=== PATIENT | male | born 1955 | race Caucasian/White ===

== ENCOUNTER 2025-01-08 20:33 | Inpatient (IN) | payer MEDICARE, OTHER, SELFPAY ==
[2025-01-08] VITALS (7 sets, daily range): BP systolic 129–174; BP diastolic 74–86; BMI 24.4; BMI 23.6
[2025-01-08 17:14] LABS: % Basophils 0.4 % (0-2); % Eosinophils 1.5 % (0-6); % Immature Granulocytes 0.2 % (0-0.5); % Lymphocytes 13.9 % (20.5-51.1); % Monocytes 7.6 % (1.7-9.3); % Neutrophils 76.4 % (42.2-75.2); Absolute Eosinophils 0.1 10^3/uL (0-0.7); Absolute Lymphocytes 1.3 10^3/uL (1.2-3.4); Absolute Monocytes 0.7 10^3/uL (0.1-0.6); Absolute Neutrophils 7.3 10^3/uL (1.4-6.5); Hematocrit 47.3 % (39.0-52.0); Hemoglobin 15.8 g/dL (13.0-18.0); Mean Corp Hgb Conc. 33.4 g/dL (33.0-37.0); Mean Corpuscular Hgb 30.2 pg (27.0-31.0); Mean Corpuscular Volume 90.3 fL (80.0-94.0); Mean Platelet Volume 10.1 fL (7.4-10.4); Nucleated Red Blood Cells % 0 % (-); Platelet Count 289 10^3/uL (130-400); Red Blood Cell Count 5.24 10^6/uL (4.70-6.10); Red Cell Dist. Width 13.2 % (11.5-14.5); White Blood Cell Count 9.5 10^3/uL (4.8-10.8)
[2025-01-08 17:27] LABS: ALT (SGPT) 16 U/L (0-50); AST (SGOT) 20 U/L (17-59); Albumin 4.8 g/dl (3.5-5.0); Alkaline Phosphatase 57 U/L (38-126); Blood Urea Nitrogen 14 mg/dl (9-20); Calcium 9.5 mg/dl (8.4-10.2); Carbon Dioxide 25 mmol/L (22-30); Chloride 106 mmol/L (98-107); Glucose 100 mg/dl (70-99); Potassium 4.6 mmol/L (3.5-5.1); Sodium 139 mmol/L (135-145); Total Bilirubin 1.3 mg/dl (0.2-1.3); Total Protein 7.1 g/dl (6.3-8.2); eGFR > 60.00
[2025-01-08 17:40] LABS: Troponin I 0.081 ng/ml
[2025-01-08] MEDS: NITROSTAT (SUBLINGUAL) 0.4 MG SL (18:51)
[2025-01-08] MEDS: LOW STRENGTH ASPIRIN 324 MG PO (18:52)
--- NOTE | 2025-01-08 18:56 | ED.GENMED ---
History of Present Illness
General
Chief Complaint: Cardiac Symptoms
Time Seen by Provider: 01/08/25 18:30
History of Present Illness
History of Present Illness:
Patient is a 69-year-old man with history of hypertension presenting to the emergency department chest pain. Patient states that last night he developed chest pressure that he thought was indigestion. It worsened throughout the day. It did go
down to his right hand though that resolved. He has never had this happen to him before. He does have strong family history of cardiac disease and his father in his 40s from heart attack. He did see cardiology back in 2022 and
reportedly had a normal CT scan. Has never had a stress test. No smoking. Social alcohol use. No associated shortness of breath leg swelling or hemoptysis. Is never happened to him before. He does state that he has a mild 1-2 out of 10 chest
pain currently.
Phy Exam
Physical Exam
Physical Exam:
GENERAL: in no acute distress
HEENT: normocephalic, extraocular movements intact, moist oral mucosa
NECK: normal inspection
RESPIRATORY: no respiratory distress, clear to auscultation bilaterally
CARDIOVASCULAR: regular rate and rhythm, 2+ radial pulses bilaterally
ABDOMEN/: soft, non-distended, non-tender to palpation, no rebound or guarding
EXTREMITIES: non-tender, no edema/swelling
NEUROLOGIC: awake and alert, moves all extremities
SKIN: warm
Course
Orders/Labs/Results
Orders:
Orders
01/08/25 16:28
EKG [Electrocardiogram (*1)] Urgent
Reason for Study: Chest Pain
EKG- Treatment ONCE
01/08/25 16:33
CR Chest - 2 Views Urgent
Comment:
Reason For Exam: cardiac symptoms
01/08/25 16:45
Complete Blood Count/With Diff Urgent
Comprehensive Metabolic Panel Urgent
Troponin I Urgent
01/08/25 18:46
EKG- Treatment ONCE
Aspirin Chewable [Low Strength Aspirin] 324 mg PO NOW STA
Nitroglycerin Sublingual [Nitrostat (Sublingual)] 0.4 mg SL NOW STA
01/08/25 18:50
Troponin I Urgent
01/08/25 19:13
Heparin 4,000 units IV NOW STA
01/08/25 19:14
D-Dimer Urgent
PTT Urgent
Comment: Obtain baseline before beginning heparin infusion if not already collected
Nursing to Place Non Medication Order As Directed
Physician Order: PTT 6 hours after initial start of Heparin infusion
Above order entered?: Yes
01/08/25 19:15
Heparin 36142 Units/250 ml 25,000 units in 250 ml IV PER PROTOCOL
Weight to be used for heparin protocol in kilograms (kg):: 77.2
Protocol:: Cardiac Tx/Acute Coronary
PTT Goal Range to be used:: PTT 73 to 111 seconds
Order type:: Initial
INITIAL Infusion Dose (UNITS/KG/hr) & then follow protocol:: 15 units/kg/hr
Infusion Dose in UNITS/hr & then follow protocol (UNITS/hr):: 1,150
INFUSION RATE in mL/hr & then follow protocol (mL/hr):: 11.5
PTT less than or equal to 64 seconds:: Increase rate by 200 units/hr (+ 2 mL/hr)
PTT 64.1 to 72.9 seconds:: Increase rate by 100 units/hr (+ 1 mL/hr)
PTT 73 to 111 seconds:: Target Range. No change in rate.
PTT 111.1 to 130.9 seconds:: Decrease rate by 100 units/hr (- 1 mL/hr)
PTT 131 to 199.9 seconds:: HOLD for 1 hr. Then decrease rate by 200 units/hr (- 2 mL/hr)
PTT greater than or equal to 200 seconds:: HOLD for 2 hrs & Notify Provider. Then decrease by 200 units/hr (-
2 mL/hr)
Lab follow-up:: Each change, PTT q6h until 2 consecutive are therapeutic. Then PTT
daily.
01/08/25 19:22
Electrocardiogram (*1) Urgent
Reason for Study: Other
Other Reason for Exam: chest pain resolved
EKG- Treatment ONCE
01/08/25 19:45
Electrocardiogram (*1) Urgent
Reason for Study: Chest Pain
Abnormal Lab Results
01/08/25 01/08/25
16:45 18:50
Absolute Neuts (auto) 7.3 H 10^3/uL
(1.4-6.5)
Absolute Monos (auto) 0.7 H 10^3/uL
(0.1-0.6)
Neutrophils % 76.4 H %
(42.2-75.2)
Lymphocytes % 13.9 L %
(20.5-51.1)
Glucose 100 H mg/dl
(70-99)
Troponin I 0.081 H* ng/ml 0.112 H* D ng/ml
01/08/25 16:45
01/08/25 16:45
Vital Signs
Initial and Last Documented VS:
Initial Vital Signs
Temp Pulse Resp BP Pulse Ox
98.0 F 77 18 174/86 98
01/08/25 16:29 01/08/25 16:29 01/08/25 16:29 01/08/25 16:29 01/08/25 16:29
Last Documented Vital Signs
Temp Pulse Resp BP Pulse Ox
98.0 F 71 12 129/79 97
01/08/25 16:29 01/08/25 19:15 01/08/25 19:15 01/08/25 19:08 01/08/25 19:15
MDM/Problems Addressed
Differential Diagnosis Includes:
Patient is a 69-year-old male with history of hypertension presenting to the emergency department with chest pain. On arrival patient was hypertensive though that improved without any intervention. Exam is otherwise reassuring. Concern for ACS.
Initial EKG per my interpretation with diffuse ST depressions and possible 1 mm elevation in aVR. Initial troponin is elevated. Will give aspirin and nitroglycerin. Will initiate heparin drip.
I did discuss with cardiology given patient's ongoing chest pain and EKG changes. They recommended adding on dimer and ekg when chest pain free.
On reevaluation patient states that he is chest pain-free after aspirin and nitroglycerin. He only received 1 sublingual. Repeat EKG per my interpretation with resolution of the changes. Discussed with hospitalist who accepted patient to their
service. Dimer pending.
*Critical Care Note
Total Time (30-74mins, 75-104mins- exclusive of procedures): 31
comment:
Critical care statement: A total of 31 minutes of critical care time was provided for this patient. This includes management of unstable vital signs, evaluation of the patient at bedside, reviewing the patient's pertinent medical records, ordering
and reviewing studies, arranging urgent treatment with development of a management plan, evaluating patient's response to treatment, frequent reassessment, and discussion with consultants. This time was separate from time utilized to perform the
aforementioned documented procedures.
ED Attending Note
-
Portions of this chart may have been created with voice recognition software.� Occasional wrong word or��sound alike� substitutions may have occurred due to the inherent limitations of voice recognition software.
Discharge Plan
Departure
Patient Disposition: Admit
Date of Disposition: 01/08/25
Time of Disposition: 19:42
Presentation/result/management discussed w/ accepting MD/DO: Hospitalist
Discharge Problem:
Non-ST elevation AL (NSTEMI)
Prescriptions:
No Action
losartan 50 mg Tablet
50 mg PO DAILY
latanoprost 0.005 % Drops
1 drp RIGHT EYE HS
dextroamphetamine-amphetamine [Adderall] 10 mg Tablet
10 mg PO DAILY
amlodipine [Norvasc] 10 mg Tablet
10 mg PO DAILY
acetaminophen [Tylenol] 325 mg Tablet
325 mg PO DAILYPRN PRN (Reason: mild pain)
timolol maleate 0.5 % Gel Forming Solution
1 drp RIGHT EYE DAILY
Interventions
Interventions:
*Risk Screen - Suicide Last Done: 01/08/25 19:07
*General Assessment Last Done: 01/08/25 16:29
*Neglect/Abuse Screening Last Done: 01/08/25 19:07
*ED- Fall Risk Assessment Last Done: 01/08/25 19:07
*ED COVID-19 Vaccine History Last Done: 01/08/25 19:37
ED- Pulmonary Assessment Last Done: 01/08/25 19:07
ED- Cardiac Assessment Last Done: 01/08/25 19:07
Discharge Date and Time
Print Language: MALTESE
[2025-01-08 19:23] LABS: Troponin I 0.112 ng/ml
[2025-01-08] MEDS: HEPARIN 25000 UNITS/250 ML IV (19:34)
[2025-01-08] MEDS: HEPARIN 4000 UNITS IV (19:35)
[2025-01-08 20:04] LABS: APTT 35.1 Sec (23.4-35.0)
[2025-01-08 20:12] LABS: D-Dimer < 0.27 ug/mlFEU (0.00-0.50)
--- NOTE | 2025-01-08 20:15 | HPS.HSE ---
Addendum entered and electronically signed by Refugio Heredia DO 01/08/25 21:49:
Patient seen and examined independently. Agree with findings and plan as set forth by Sheila Oakley PA-C.
Patient is a 69y M with PMH significant for hypertension who presents to ED complaining of chest discomfort. Patient states that he woke this AM around 3 with chest pressure. He felt that this was due to indigestion. His discomfort was in the
center of the chest with radiation into the R shoulder and arm. It was worse when lying flat. No associated dyspnea, nausea, diaphoresis, etc. His symptoms persisted and worsened throughout the day and he presented to the ED for further
evaluation.
He denies any prior history of similar symptoms.
He denies any prior history of CV disease, [place], stroke, etc.
He does have strong family history. His father had CAD with his first [place] at age 39.
Ass:
NSTEMI / ACS
Benign Hypertension
Glaucoma
Plan:
Admit to IVU for further evaluation and treatment.
Patient is pain free after single NTG in the ED.
IV heparin initiated.
Continue ASA. Begin statin. low-dose beta-vernon, etc.
Cardiology consultation - probable ischemic evaluation in the AM.
Monitor for any recurrent pain or other new symptoms overnight.
Follow troponin to peak.
Follow serial EKG.
Original Note:
Family Physician
-
Family Physician:
Chief Complaint
-
Chest Discomfort
History of Present Illness
Patient is a 69 y/o male past medical history of hypertension who presents with chest discomfort. Patient awoke around 3am this morning with chest pressure which he attributed to indigestion. He notes it seemed worse when lying flat but improved
when sitting up. He reports symptoms persisted and worsened throughout the day prompting him to come to the emergency department for evaluation. He denies any associated shortness of breath or diaphoresis. He denies any similar episodes in the past.
Medical History
Past Medical History
Past Medical History: Reports Other
Additional Past Medical History:
Essential Hypertension
Glaucoma
Past Surgical History: Reports None
Social History
Tobacco: Non-smoker
Alcohol: Occasional
Family History
Family History: Other (Father: Early CAD passing from heart attack in his 40s)
Allergies / Home Medications
Allergies reflects when Allergies were last updated in [facility].
Home Medications with original date entered in [facility]
Allergy/Medication List:
Allergies
Allergy/AdvReac Type Severity Reaction Status Date / Time
No Known Allergies Allergy Unverified 01/08/25 16:29
Home Medications
acetaminophen 325 mg tablet (Tylenol) 325 mg PO DAILYPRN PRN mild pain 01/08/25
amlodipine 10 mg tablet (Norvasc) 10 mg PO DAILY 01/08/25
dextroamphetamine-amphetamine 10 mg tablet (Adderall) 10 mg PO DAILY 01/08/25
latanoprost 0.005 % eye drops 1 drp RIGHT EYE HS 01/08/25
losartan 50 mg tablet 50 mg PO DAILY 01/08/25
timolol maleate 0.5 % eye gel forming solution 1 drp RIGHT EYE DAILY 01/08/25
Review of Systems
-
A 12 point ROS was completed and negative except as noted: Yes
Constitutional: Denies Fever or Chills
Respiratory: Denies Cough or Trouble Breathing
Cardiac: Reports See HPI
Abdomen/GI: Denies Abdominal Pain, Nausea, Vomiting or Diarrhea
Physical Exam
Vital Signs
Vital Signs
Temp Pulse Resp BP Pulse Ox
98.0 F 71 12 129/79 97
01/08/25 16:29 01/08/25 19:15 01/08/25 19:15 01/08/25 19:08 01/08/25 19:15
Physical Exam
General: Comfortable and Conversant
HEENT: Anicteric and Moist mucous membranes
Respiratory: Clear and Non Labored Respirations
Cardiac: S1/S2 and Regular Rhythm
GI: Soft and Non Tender
Rectal: Deferred by Provider
Musculoskeletal: No Clubbing, No Cyanosis and No Edema
Skin: Warm and Dry
Neuro: Awake, Alert, Oriented and Nonfocal/grossly intact
Psych: Calm
Laboratory Results
-
01/08/25 16:45
01/08/25 16:45
Laboratory Results
APTT 35.1 Sec (23.4-35.0) H 01/08/25 19:32
Total Bilirubin 1.3 mg/dl (0.2-1.3) 01/08/25 16:45
AST 20 U/L (17-59) 01/08/25 16:45
ALT 16 U/L (0-50) 01/08/25 16:45
Alkaline Phosphatase 57 U/L (38-126) 01/08/25 16:45
Troponin I 0.112 ng/ml H* D 01/08/25 18:50
Data Reviewed
-
Medical Tests (Nuc Med, Echo, EKG etc): Image Personally Visualized and interpreted (ECG)
Lab Data: Labs Reviewed by me
Old Records: Reviewed
Impression/Plan
-
NSTEMI
-Admit to IVU
-Consult Cardiology
-Continue to trend troponin
-Continue aspirin
-Continue heparin drip
-Start Lipitor
-Check Echocardiogram
-Tentative plan for cardiac cath tomorrow
Essential Hypertension
-Continue losartan
-Hold amlodipine and transition to Toprol XL in setting of NSTEMI
Glaucoma
-Continue latanoprost and timolol
DVT proph: Heparin drip
Code Status: Full Code
--- NOTE | 2025-01-08 22:18 | PTCARENOTE ---
received the patient from the ED. AAOx3. denies any cp/sob at this time. educated patient to inform RN with any changes. heparin gtt infusing per protocol. SR in tele 60s. 142/84. NPO. answered all questions. reviewed plan of care with patient. call
arceo within reach.
[2025-01-08] MEDS: XALATAN OPHTHALMIC SOLUTION 1 DROP RIGHT EYE (22:57)
[2025-01-08 23:42] LABS: Troponin I 0.353 ng/ml
[2025-01-09] VITALS (18 sets, daily range): BP systolic 107–167; BP diastolic 66–92; BMI 23.6
[2025-01-09 02:11] LABS: APTT 166.5 Sec (23.4-35.0)
[2025-01-09 05:26] LABS: Hematocrit 43.3 % (39.0-52.0); Hemoglobin 14.6 g/dL (13.0-18.0); Mean Corp Hgb Conc. 33.7 g/dL (33.0-37.0); Mean Corpuscular Hgb 30.3 pg (27.0-31.0); Mean Corpuscular Volume 89.8 fL (80.0-94.0); Mean Platelet Volume 10.1 fL (7.4-10.4); Platelet Count 233 10^3/uL (130-400); Red Blood Cell Count 4.82 10^6/uL (4.70-6.10); Red Cell Dist. Width 13.3 % (11.5-14.5); White Blood Cell Count 7.1 10^3/uL (4.8-10.8)
[2025-01-09 05:59] LABS: Blood Urea Nitrogen 13 mg/dl (9-20); Calcium 9.1 mg/dl (8.4-10.2); Carbon Dioxide 23 mmol/L (22-30); Chloride 110 mmol/L (98-107); Estimated Creatinine Clearance 80 ml/min; Glucose 96 mg/dl (70-99); HDL Cholesterol 43 mg/dl; LDL Cholesterol, Calculated 99 mg/dl; Magnesium 2.1 mg/dl (1.6-2.3); Sodium 140 mmol/L (135-145); Total Cholesterol 160 mg/dl (50-199); Triglyceride 93 mg/dl (10-149); Very Low Density Lipoprotein 18 mg/dl (0-30); eGFR > 60.00
[2025-01-09 06:13] LABS: Troponin I 0.426 ng/ml
[2025-01-09] MEDS: COZAAR 50 MG PO (08:21)
[2025-01-09] MEDS: LOW STRENGTH ASPIRIN 81 MG PO (08:21)
[2025-01-09] MEDS: TOPROL XL 25 MG PO (08:22)
[2025-01-09] MEDS: TIMOPTIC 0.5% OPHTHALMIC SOLUTION 1 DROP RIGHT EYE (08:22)
--- NOTE | 2025-01-09 08:26 | CON.CAR ---
Addendum entered and electronically signed by Angel Lemus MD 01/09/25 09:22:
Patient seen and examined in collaboration with [employer]; agree with below.
- 69-year-old male with hypertension and strong family history of coronary artery disease (father of an NC at the age of 40 and patient's sister underwent coronary stenting) presenting with chest pain.
- Some typical (midsternal 'chest discomfort/indigestion' with radiation to shoulders and arms) and atypical features (relieved with sitting up, worse with laying down--typical symptom for pericarditis).
- Given persistence of symptoms, age, and risk factors/family history of CAD , cardiac catheterization is recommended.
- Cardiac catheterization will be arranged for today.
- Will obtain an echocardiogram this a.m. prior to cath.
- Continue aspirin, heparin, atorvastatin, and Toprol-XL.
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
- Keep NPO for procedure.
Original Note:
Consultation
Consultation Request
Date/Time Consultation Requested: 01/08/2025 22:00
Date/Time Consultation Performed: 01/09/2025 07:50
Requesting Provider: Sheila Oakley PA-C
Performing Provider: MISSY Oshea for Dr. Lemus
Reason for Consultation: NSTEMI
Medical History
-
Chief Complaint: Chest burning
History of Present Illness:
Anastacio Lr is a 69-year-old male (seen by Dr. Gonzalez in 2022), with hypertension and ADHD who presented to the emergency department the chief complaint of chest burning. His chest burning woke him up from sleep. It radiated into his right
shoulder. No diaphoresis, nausea, nor dizziness. It started over the weekend. He thought it was related to indigestion as he tried a new recipe. It got worse with laying flat but improved when sitting up. He normally plays basketball on the
weekends for exercise and feels like he has been a little bit slower than usual. He feels like it takes a little bit longer for him to catch his breath. He was found to have an abnormal troponin. It continues to trend up.
His father had his first NC at age 49 and at age 64. He is the oldest of his siblings. None of them have been diagnosed with coronary artery disease.
Past Medical History
Past Medical History: HTN and Psychiatric (ADHD)
Past Surgical History: None
Social History
Tobacco: Non-Smoker
Alcohol: Occasional (3 drinks per week)
Drug: None
Personal:
Living: With Family
Employment: Retired
Family History
Family History: Early CAD
Allergies / Home Medications
Allergy/AdvReac Type Severity Reaction Status Date / Time
No Known Allergies Allergy Unverified 01/08/25 16:29
�Medication �Instructions �Recorded �Confirmed �Type
acetaminophen 325 mg tablet 325 mg PO DAILYPRN PRN mild pain 01/08/25 01/08/25 History
(Tylenol)
amlodipine 10 mg tablet (Norvasc) 10 mg PO DAILY Blood Pressure 01/08/25 01/08/25 History
dextroamphetamine-amphetamine 10 10 mg PO DAILY ADHD 01/08/25 01/08/25 History
mg tablet (Adderall)
latanoprost 0.005 % eye drops 1 drp RIGHT EYE HS Eye Condition 01/08/25 01/08/25 History
losartan 50 mg tablet 50 mg PO DAILY Blood Pressure 01/08/25 01/08/25 History
timolol maleate 0.5 % eye gel 1 drp RIGHT EYE DAILY Eye Condition 01/08/25 01/08/25 History
forming solution
Review of Systems
-
History Source: Patient
All other systems: Negative unless noted
Constitutional: No Symptoms
EENT: No Symptoms
Respiratory: No Symptoms
Cardiac: No Symptoms
Abdomen/GI: No Symptoms
: No Symptoms
Musculoskeletal: No Symptoms
Skin: No Symptoms
Neurological: No Symptoms
Endocrine: No Symptoms
Hematologic/Lymphatic: No Symptoms
Physical Exam
Vital Signs
Temp Pulse Resp BP Pulse Ox
97.7 F 66 14 120/71 98
01/09/25 07:09 01/09/25 05:00 01/09/25 07:09 01/09/25 04:59 01/09/25 07:09
Lab Results
01/09/25 05:01
01/09/25 05:01
Troponin I 0.426 ng/ml H* 01/09/25 05:01
Physical Exam
General: Well Developed, Well Nourished, No Apparent Distress and Comfortable
HEENT: Normocephalic, Anicteric and Moist Mucous Membranes
Respiratory: Clear and Non Labored Respirations
Cardiac: S1/S2 and Regular Rhythm; Negative Peripheral Edema
Breast: Deferred by me
GI: Soft, Non Tender, Non Distended and Normal Bowel Sounds
Rectal: Deferred by Provider
Genito-urinary: No Costovertebral Tender
Musculoskeletal: No Clubbing, No Cyanosis and No Edema
Skin: Warm and Dry
Neuro: AO x 3
Hematologic/Lymphatic: No Lymphadenopathy
Psych: Calm
Impression / Plan
-
I/P: 69M with hypertension, ADHD, glaucoma, and premature CAD in his father presents with NSTEMI
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
NSTEMI
- Currently chest pain-free
- Troponin 0.426, not yet peaked, trend
- Worsens with laying flat but EKG does not appear to be consistent with pericarditis
- EKG with nonspecific T wave abnormality
- Start atorvastatin 40 mg, goal LDL <55
- Started on metoprolol succinate 25 mg daily
- HgbA1c pending
- Echocardiogram
- Coronary angiography today
Hypertension
- Diagnosed in his early 60s
- Stable on losartan and amlodipine
Data Reviewed
-
EKG: Report Reviewed by me (As above)
Medical Tests (Nuc Med, Echo etc): Report Reviewed by me (Prior echocardiogram without acute findings)
Labs: Labs Reviewed by me
Old Records: Reviewed
--- NOTE | 2025-01-09 09:33 | CM ---
Reviewed chart. Met with and Mrs. Lr to review discharge plans. He states prior to admission he resides with his spouse in a two story home without any steps to enter. He states he has a full flight of steps to get to bedroom/full bathroom.
He states he has a powder room on the first floor. He states prior to admission he was independent with ambulation and adls. He states he does not have any DME in the home. He states he has a prescription plan and uses [facility]. Medical
work-up in progress. The discharge plan is to return home with his spouse when medically stable.
[2025-01-09 09:37] LABS: Glycohemoglobin (HgbA1c) 5.6 % (4.0-5.6)
[2025-01-09 10:47] LABS: APTT 66.9 Sec (23.4-35.0)
[2025-01-09 10:56] LABS: Troponin I 0.317 ng/ml
--- NOTE | 2025-01-09 15:01 | W.PN.HOSP.TC ---
Today's Communication/Plan
-
Assessment / Plan
Assessment / Plan
General: No Apparent Distress, Comfortable and Conversant
HEENT: NormoCephalic, Moist mucous membranes, Atraumatic
Respiratory: Clear and Non Labored Respirations
Cardiac: S1/S2 and Regular Rhythm; No Rub or Gallop
GI: Soft, Non Tender, Non Distended and Normal Bowel Sounds
Musculoskeletal: No Edema, no deformity
Skin: Warm and dry
: NO Santos
Neuro: Awake, Alert, Nonfocal/grossly intact
Psych: Calm and Intact Judgment/Insight
Mr. Lr is a 69-year-old male with a medical history of hypertension and right eye glaucoma who presented with chest discomfort which awoke him from sleep. In the ED he was found to have rising troponins. EKG showed nonspecific ST and T wave
abnormalities. He has a strong family history of CAD. He was started on anticoagulation with IV heparin and admitted for further evaluation and management.
NSTEMI:
- Strong family history of CAD, father at age of 40 of [place]
- Presented with chest pain, troponins rising
- Continue IV heparin drip
- Awaiting coronary angiography
- Echocardiogram shows normal LVEF, possible basal inferior wall hypokinesis, normal valvular function
- Continue aspirin and statin
Hypertension:
- Continue home losartan 50 mg daily
- Holding home amlodipine 10 mg daily as patient is relatively normotensive on above regimen
- Will monitor
DVT prophylaxis: IV heparin
CODE STATUS: Full code
Total time spent on today's encounter was 40 minutes
Anticipated Discharge: 24 - 48 hours
Subjective/Interval History
-
Date of Service: January 09, 2025
Patient was seen and examined this morning. Comfortable, in no current chest pain. On IV heparin drip, awaiting coronary angiography.
Objective Data
-
Labs:
Laboratory Results
01/09/25 01/09/25 01/09/25
05:01 10:16 17:30
WBC 7.1
Hgb 14.6
Hct 43.3
Plt Count 233
APTT 66.9 H Pending
Sodium 140
Potassium 4.0
Chloride 110 H
Carbon Dioxide 23
BUN 13
Creatinine 0.9
Glucose 96
Calcium 9.1
Vital Signs:
Vital Signs
Temp Pulse Resp BP Pulse Ox
98 F 67 14 123/75 98
01/09/25 10:35 01/09/25 08:00 01/09/25 10:35 01/09/25 07:08 01/09/25 10:35
I&O
01/08/25 01/09/25 01/10/25
06:59 06:59 06:59
Intake Total 0 / 0
Balance 0 / 0
Review of Systems
-
History Source: Patient
All other systems: Reviewed and negative
Physical Exam
-
General: No Apparent Distress
[2025-01-09 15:42] LABS: ACT-LR - POC > 397 Seconds (116-155)
[2025-01-09 15:42] LABS: ACT-LR - POC > 397 Seconds (116-155)
[2025-01-09 16:04] LABS: ACT-LR - POC 353 Seconds (116-155)
[2025-01-09] MEDS: EFFIENT 60 MG PO (16:58)
[2025-01-09] MEDS: MORPHINE SULFATE 2 MG IV ×2 (17:08→21:29)
[2025-01-09] MEDS: LIPITOR 40 MG PO (18:05)
[2025-01-09] MEDS: NITROGLYCERIN PREMIX 250 IV (18:40)
[2025-01-09] MEDS: HEPARIN 25000 UNITS/250 ML IV (18:41)
[2025-01-09 18:46] LABS: Hematocrit 47.7 % (39.0-52.0); Hemoglobin 15.9 g/dL (13.0-18.0); Mean Corp Hgb Conc. 33.3 g/dL (33.0-37.0); Mean Corpuscular Hgb 29.9 pg (27.0-31.0); Mean Corpuscular Volume 89.7 fL (80.0-94.0); Mean Platelet Volume 9.9 fL (7.4-10.4); Platelet Count 263 10^3/uL (130-400); Red Blood Cell Count 5.32 10^6/uL (4.70-6.10); Red Cell Dist. Width 13.4 % (11.5-14.5); White Blood Cell Count 9.8 10^3/uL (4.8-10.8)
[2025-01-09 19:12] LABS: APTT > 200 Sec (23.4-35.0)
[2025-01-09] MEDS: TIMOPTIC 0.5% OPHTHALMIC SOLUTION RIGHT EYE (19:33)
[2025-01-09] MEDS: XALATAN OPHTHALMIC SOLUTION 1 DROP RIGHT EYE (19:33)
--- NOTE | 2025-01-09 20:26 | ITS.CL.PN ---
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
Procedure
Procedure Note:
CARDIAC CATHETERIZATION REPORT
Date of Procedure: 01/09/2025
Referring: Dr. Angel Lemus MD
Indication: NSTEMI
PROCEDURE(S)
1. left heart catheterization
2. coronary angiography
3. PCI with HOPE to LCx
4. IVUS LCx
5. PCI with HOPE to LAD
6. IVUS LAD
ACCESS: 6F right radial artery (closure: radial band)
CATHETERS
1. 6F JR4
2. 6F JL4
3. 6F EBU3.75 guide
MODERATE SEDATION: 60 minutes of moderate sedation was utilized. An independent medical scientific liaison was present to assist with and help manage the patient's level of consciousness and physiologic status.
HEMODYNAMIC DATA
LV 93/2 (EDP 6) mmHg
AO 106/50 (mean 78) mmHg
CORONARY ANGIOGRAPHY
Dominance: Right
LM: Large, normal
LAD: Large vessel giving rise to a small D1, moderate caliber D2, and small D3 before wrapping around the apex. There is a focal 80% stenosis just after D1 and a long segment of moderate 40% stenosis. There is an area of minimal disease in the
proximal LAD. The ostial to very proximal LAD has 30-40% disease.
LCx: Large vessel giving rise to a small OM1, large OM 2, and several small distal OM branches. There is a 95% stenosis in the proximal circumflex and a serial 80% stenosis in the mid body of the large OM 2.
RCA: Large vessel giving rise to a large moderate caliber RPDA and large RPL branch. There is a long 40% stenosis in the proximal vessel and otherwise diffuse mild disease.
IVUS-guided PCI with HOPE to LCx and LAD
Heparin was used to achieve ACT>300. A Runthrough wire was placed in the distal OM2 and initial lesion preparation performed with a 2.5 mm Semi-compliant balloon with full expansion. IVUS was performed demonstrating a 3.5 mm reference vessel
diameter in the OM2 and a 3.75 mm reference diameter in the LCx. The OM2 was stented with a 3.5x23 mm Xience Skypoint HOPE taken to 12 karly and the LCx stented with a 3.5x18 mm Xience Skypoint HOPE taken to 16 karly. Post-dilation was performed in the
OM2 with a 3.5 mm NC balloon taken to 16 karly (sparing the distal edge) and in the LCx with a 3.75 mm NC balloon taken to 16 karly. Final IVUS demonstrated full stent expansion and apposition with no edge dissections. Final angiographic result was
excellent. The Runthrough was then placed in the distal LAD. Initial lesion preparation was performed with the 2.5 mm balloon. IVUS demonstrated a 3.5 mm reference vessel diameter with concentric calcification at the site of worst stenosis and it
was difficult to advanced the IVUS catheter across this section. Thus, to ensure stent expansion could be accomplished without further calcium modification, a 3.5 mm NC was inflated to 16 karly at the lesion site with full expansion noted. Subsequent
angiography demonstrated dissection at this site with no compromise fo distal flow. On review of IVUS, it was noted that there was significant (>50%) plaque burden at the ostial to very proximal LAD. Thus, in order to stent from normal to normal
while adequately covering the dissected area, it was decided to cover to the ostium. This was accomplished with a 3.5x38 mm Xience Skypoint HOPE inflated to 16 karly. Post-dilation was performed with the 3.5 NC take to 16 karly at the distal and proximal
edges and 20 karly centrally with full expansion. Final IVUS demonstrated full stent expansion and apposition with no edge dissections. Final angiographic result demonstrated loss of a small jailed diagonal branch. There were no EKG changes on the
monitor. The patient did report mild chest discomfort. Given that opening this small branch would compromise the integrity and longevity of the proximal LAD stent, it was felt optimal to instead medically manage this small side branch closure to
optimize longwall machine operator helper LAD patency. The wires and guide were removed and a TR band placed. The patient was loaded with 60 mg Prasugrel.
RADIATION: dose 1353 mGy; DAP 90.9 Gy*cm2; fluoroscopy time 20.2 min
CONCLUSIONS
1. Two vessel obstructive CAD with culprit 95% stenosis in the LCx and serial 80% stenosis in the OM2 as well as 80% stenosis in the proximal LAD.
2. Successful IVUS guided PCI of the OM2 with a 3.5x23 mm Xience Skypoint HOPE post-dilated with a 3.5 mm NC balloon.
3. Successful IVUS guided PCI of the LCx with a 3.5x18 mm Xience Skypoint HOPE post-dilated with a 3.75 mm NC balloon.
4. Successful IVUS guided PCI of the ostial to mid LAD with a 3.5x38 mm Xience Skypoint HOPE post-dilated with a 3.5 mm NC balloon, complicated by closure of small jailed diagonal branch, medically managed.
RECOMMENDATIONS
1. DAPT with ASA and Prasugrel for 1 year
2. Aggressive secondary prevention of CAD, high intensity statin for eventual goal LDL<55, check Lp(a)
3. Heparin overnight, can stop in AM
4. Nitro drip to maintain chest pain free, PRN morphine
5. Titrate beta vernon to goal HR 60
6. Cardiac rehab
7. Outpatient follow up with DAIRY TRUCK DRIVER per protocol and then me
Copy to: Dr. Cmailo Espinoza MD (PCP)
Signed: Chuck Gomez MD, PhD
--- NOTE | 2025-01-09 23:26 | PTCARENOTE ---
Received patient at change of shift. SR on the monitor, HR in the 80s. R radial band removed and dressing applied, ecchymotic but soft. Nitro running as per protocol for chest pain. PTT >200, EXECUTIVE SOUS CHEF Adelaide Caraballo notified and protocol followed. Chest pain
11/16, PRN pain medication administered as per order, see MAR. Chest pain now 08/18. Call arceo within reach.
[2025-01-10] VITALS (12 sets, daily range): BP systolic 105–128; BP diastolic 63–80
[2025-01-10 03:49] LABS: Hematocrit 40.9 % (39.0-52.0); Hemoglobin 14.1 g/dL (13.0-18.0); Mean Corp Hgb Conc. 34.5 g/dL (33.0-37.0); Mean Corpuscular Hgb 30.3 pg (27.0-31.0); Mean Corpuscular Volume 87.8 fL (80.0-94.0); Mean Platelet Volume 9.9 fL (7.4-10.4); Platelet Count 263 10^3/uL (130-400); Red Blood Cell Count 4.66 10^6/uL (4.70-6.10); Red Cell Dist. Width 13.3 % (11.5-14.5); White Blood Cell Count 14.7 10^3/uL (4.8-10.8)
[2025-01-10 04:00] LABS: APTT 40.3 Sec (23.4-35.0)
[2025-01-10 04:17] LABS: Blood Urea Nitrogen 16 mg/dl (9-20); Calcium 9.2 mg/dl (8.4-10.2); Carbon Dioxide 20 mmol/L (22-30); Chloride 108 mmol/L (98-107); Estimated Creatinine Clearance 80 ml/min; Glucose 136 mg/dl (70-99); HDL Cholesterol 46 mg/dl; LDL Cholesterol, Calculated 89 mg/dl; Sodium 137 mmol/L (135-145); Total Cholesterol 153 mg/dl (50-199); Triglyceride 90 mg/dl (10-149); Very Low Density Lipoprotein 18 mg/dl (0-30); eGFR > 60.00
--- NOTE | 2025-01-10 07:30 | PTCARENOTE ---
Received pt at change of shift resting in bed, at bedside. Heparin gtt infusing at 950 units/hr and Nitro gtt infusing at 30 mcg/min. pt ambulating in room ad laura. Denies any chest pain or SOB. NSR on the monitor, HR 60-70's. BP 107/68. Cozaar
held per parameters--see MAR for further details. Right radial site C.D.I. No bleeding or hematoma noted at this time. Call arceo within reach.
[2025-01-10] MEDS: TOPROL XL 50 MG PO (08:13)
[2025-01-10] MEDS: LOW STRENGTH ASPIRIN 81 MG PO (08:13)
[2025-01-10] MEDS: TIMOPTIC 0.5% OPHTHALMIC SOLUTION 1 DROP RIGHT EYE (08:14)
[2025-01-10] MEDS: EFFIENT 10 MG PO (08:37)
[2025-01-10] MEDS: COZAAR PO (08:37)
--- NOTE | 2025-01-10 10:08 | W.PN.CD ---
Addendum entered and electronically signed by Angel Lemus MD 01/10/25 13:24:
Patient seen and examined in collaboration with PGY 2 resident; agree with below.
- 69-year-old male with hypertension and family history of coronary artery disease (father and sister) admitted with chest pain; found to have an NSTEMI.
- Cardiac catheterization yesterday revealed multivessel coronary artery disease whereby HOPE (3) were placed to the OM 2, LCx, and ostial to mid LAD (complicated by closure of small jailed diagonal branch, medically managed).
- The patient denies any anginal symptoms currently.
- Echocardiogram yesterday revealed normal LVEF and no significant valvulopathy.
- Examination: Regular rate and rhythm, normal S1-S2; lungs CTA bilaterally; no edema.
- Continue aspirin, prasugrel, atorvastatin, and metoprolol succinate
- Continue losartan for management of hypertension.
- Will continue to monitor on telemetry 1 more day, given small jailed diagonal branch; patient instructed to ambulate and notify staff of any anginal symptoms.
Original Note:
Documented by User: Brandon Shah MD, Resident 01/10/25 10:15
Today's Communication / Plan
-
* Continue DAPT, metoprolol, atorvastatin.
* Monitor today; anticipated discharge tomorrow.
Impression / Plan
-
I/P: 69M with hypertension, ADHD, glaucoma, and premature CAD in his father presents with NSTEMI
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
NSTEMI
- Currently chest pain-free
- Troponin peaked at 0.426 on 01-09-25.
- Continue atorvastatin 40 mg, goal LDL <55
- Continue metoprolol succinate 25 mg daily
- Left heart catheterization on 01-11-25; s/p 3x stents to OM2, LCx and LAD.
- Continue DAPT with aspirin and prasugrel for 1 year; aspirin indefinitely subsequently.
- Cardiac rehab and outpatient cardiology follow-up.
Hypertension
- Diagnosed in his early 60s
- Stable on losartan and amlodipine
Physical Exam
Vital Signs/Labs
Vital Signs
Temp Pulse Resp BP Pulse Ox
97.8 F 77 18 107/68 96
01/10/25 08:37 01/10/25 08:37 01/10/25 08:37 01/10/25 08:37 01/10/25 08:37
01/09/25 01/10/25 01/11/25
06:59 06:59 06:59
Actual Weight 74.7 kg 74.7 kg
01/10/25 03:33
01/10/25 03:33
APTT 40.3 Sec (23.4-35.0) H 01/10/25 03:33
Magnesium 2.1 mg/dl (1.6-2.3) 01/09/25 05:01
Triglycerides 90 mg/dl (10-149) 01/10/25 03:33
LDL Cholesterol, Calc 89 mg/dl 01/10/25 03:33
VLDL Cholesterol, Calc 18 mg/dl (0-30) 01/10/25 03:33
HDL Cholesterol 46 mg/dl 01/10/25 03:33
LAB Results
01/08/25 01/08/25 01/08/25
16:45 18:50 23:08
Troponin I 0.081 H* 0.112 H* D 0.353 H* D
01/09/25 01/09/25
05:01 10:16
Troponin I 0.426 H* 0.317 H* D
Physical Exam
Constitutional: No acute distress and Comfortable
EENT: Anicteric and Moist mucous membranes
Cardiovascular: Rhythm & rate is regular, Pedal edema is absent, Systolic murmur absent and Diastolic murmur absent
Respiratory: Respiratory effort normal and Lungs clear to auscul.
GI: Soft and Non tender
Neuro/Psych: Alert, Oriented and Motor deficits absent
Data Reviewed
-
Date of Service: January 10, 2025

Documented by User: Angel Lemus MD 01/10/25 13:19
Data Reviewed
-
EKG: Report Reviewed by me (Sinus rhythm)
Echo: Report Reviewed by me (Normal LVEF; no significant valvular disease.)
Labs: Labs Reviewed by me
--- NOTE | 2025-01-10 10:36 | CM ---
Reviewed chart. Met with and Mrs. Lr to review discharge plans. He states he is feeling well and maybe able to go home soon. Telephone call to [facility] to see if Prasugrel 10 mg po in stock. [facility] has Prasugrel in stock.
Telephone call to [facility], ([phone]) to check on co-pay for Prasugrel 10 mg po daily- The co-pay for one month is $21.99 and for 90 supply the co-pay is $76.38. Reviewed co-pay with . He is agreeable to the co-pay. Prior to admission he
resides with his spouse in a two story home without any steps to enter. He has a full flight of steps to get to bedroom/full bathroom. He has a powder room on the first floor. Prior to admission he was independent with ambulation and adls. He does
not have any DME in the home. He has a prescription plan with [facility] and uses [facility]. Medical work-up in progress. The discharge plan is to return home with his spouse when medically stable.
--- NOTE | 2025-01-10 14:43 | W.PN.HOSP.TC ---
Today's Communication/Plan
-
Assessment / Plan
Assessment / Plan
General: No Apparent Distress, Comfortable and Conversant
HEENT: NormoCephalic, Moist mucous membranes, Atraumatic
Respiratory: Clear and Non Labored Respirations
Cardiac: S1/S2 and Regular Rhythm; No Rub or Gallop
GI: Soft, Non Tender, Non Distended and Normal Bowel Sounds
Musculoskeletal: No Edema, no deformity
Skin: Warm and dry
: NO Santos
Neuro: Awake, Alert, Nonfocal/grossly intact
Psych: Calm and Intact Judgment/Insight
Mr. Lr is a 69-year-old male with a medical history of hypertension and right eye glaucoma who presented with chest discomfort which awoke him from sleep. In the ED he was found to have rising troponins. EKG showed nonspecific ST and T wave
abnormalities. He has a strong family history of CAD. He was started on anticoagulation with IV heparin and admitted for further evaluation and management.
NSTEMI:
- Strong family history of CAD, father at age of 40 of [place]
- Presented with chest pain and elevated troponins
- Status post left heart cath and PCI with HOPE to LCx, OM2, and LAD, complicated by small jailed diagonal branch being managed medically
- Some residual chest pain postprocedure relieved by nitroglycerin drip
- Echocardiogram shows normal LVEF, possible basal inferior wall hypokinesis, normal valvular function
- Continue DAPT for at least 1 year followed by aspirin thereafter indefinitely, high intensity statin
- Started on metoprolol succinate at 50 mg daily
- Continue inpatient monitoring on telemetry for the next 24 hours, further recommendations per cardiology
Hypertension:
- Continue home losartan 50 mg daily
- Holding home amlodipine 10 mg daily as patient is relatively normotensive on above regimen
- Will monitor
DVT prophylaxis: Now off IV heparin drip, on DAPT, will add subcu heparin if remains inpatient beyond the next 24 hours, otherwise patient has been ambulating regularly
CODE STATUS: Full code
Total time spent on today's encounter was 40 minutes
Anticipated Discharge: 24 - 48 hours
Subjective/Interval History
-
Date of Service: January 10, 2025
Patient was seen and examined at bedside this morning. Feeling well following PCI yesterday with HOPE x 3. Had some residual chest pain relieved with nitroglycerin drip.
Objective Data
-
Labs:
Laboratory Results
01/10/25 01/10/25
03:33 10:00
WBC 14.7 H
Hgb 14.1
Hct 40.9
Plt Count 263
APTT 40.3 H Cancelled
Sodium 137
Potassium 4.0
Chloride 108 H
Carbon Dioxide 20 L
BUN 16
Creatinine 0.9
Glucose 136 H
Calcium 9.2
Vital Signs:
Vital Signs
Temp Pulse Resp BP Pulse Ox
97.8 F 71 18 113/72 100
01/10/25 11:13 01/10/25 12:56 01/10/25 11:13 01/10/25 12:56 01/10/25 11:13
I&O
01/09/25 01/10/25 01/11/25
06:59 06:59 06:59
Intake Total 0 / 0 480 / 480
Balance 0 / 0 480 / 480
Review of Systems
-
History Source: Patient
All other systems: Reviewed and negative
Physical Exam
-
General: No Apparent Distress
--- NOTE | 2025-01-10 15:30 | CHAP ---
Msgr. Silviano Chaparro of [facility] in [place] anointed Anastacio and gave him Holy Communion.
[2025-01-10] MEDS: LIPITOR 40 MG PO (17:27)
[2025-01-10] MEDS: TIMOPTIC 0.5% OPHTHALMIC SOLUTION RIGHT EYE (20:06)
[2025-01-10] MEDS: XALATAN OPHTHALMIC SOLUTION 1 DROP RIGHT EYE (22:59)
--- NOTE | 2025-01-11 01:01 | PTCARENOTE ---
Received patient at change of shift. SR on the monitor, HR in the 70s. R radial dressing CDI. No chest pain. No complaints from pt at this time, call arceo within reach.
[2025-01-11 04:44] VITALS: BP 135/70
[2025-01-11 05:36] LABS: Hematocrit 41.8 % (39.0-52.0); Hemoglobin 14.3 g/dL (13.0-18.0); Mean Corp Hgb Conc. 34.2 g/dL (33.0-37.0); Mean Corpuscular Hgb 29.9 pg (27.0-31.0); Mean Corpuscular Volume 87.4 fL (80.0-94.0); Mean Platelet Volume 10.2 fL (7.4-10.4); Platelet Count 235 10^3/uL (130-400); Red Blood Cell Count 4.78 10^6/uL (4.70-6.10); Red Cell Dist. Width 13.3 % (11.5-14.5); White Blood Cell Count 9.2 10^3/uL (4.8-10.8)
[2025-01-11 07:34] VITALS: BP 119/69
--- NOTE | 2025-01-11 07:38 | W.PN.CD ---
Today's Communication / Plan
-
d/c home on current meds with cards follow up
Impression / Plan
-
I/P: 69M with hypertension, ADHD, glaucoma, and premature CAD in his father presents with NSTEMI
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
NSTEMI
- Chest pain free since 01/10
- sinus rhythm on tele
- Troponin peaked at 0.426 on 01-09-25.
- Continue atorvastatin 40 mg, goal LDL <55, may need additional agents to achieve goal as outpatient
- Continue metoprolol succinate 25 mg daily
- Left heart catheterization on 01-11-25; s/p 3x stents to OM2, LCx and LAD.
- Continue DAPT with aspirin and prasugrel for 1 year; aspirin indefinitely subsequently.
- Cardiac rehab and outpatient cardiology follow-up (discussed with patient, will see Davian Lemus)
Hypertension
- Diagnosed in his early 60s
- Stable on losartan and amlodipine
Physical Exam
Vital Signs/Labs
Vital Signs
Temp Pulse Resp BP Pulse Ox
37.0 C 73 20 135/70 96
01/11/25 07:35 01/11/25 04:44 01/11/25 07:35 01/11/25 04:44 01/11/25 07:35
01/10/25 01/11/25 01/12/25
06:59 06:59 06:59
Actual Weight 74.7 kg
01/11/25 04:48
01/10/25 03:33
APTT Cancelled 01/10/25 10:00
Magnesium 2.1 mg/dl (1.6-2.3) 01/09/25 05:01
Triglycerides 90 mg/dl (10-149) 01/10/25 03:33
LDL Cholesterol, Calc 89 mg/dl 01/10/25 03:33
VLDL Cholesterol, Calc 18 mg/dl (0-30) 01/10/25 03:33
HDL Cholesterol 46 mg/dl 01/10/25 03:33
LAB Results
01/08/25 01/08/25 01/08/25
16:45 18:50 23:08
Troponin I 0.081 H* 0.112 H* D 0.353 H* D
01/09/25 01/09/25
05:01 10:16
Troponin I 0.426 H* 0.317 H* D
Physical Exam
Constitutional: No acute distress
Cardiovascular: Rhythm & rate is regular
Respiratory: Respiratory effort normal
Neuro/Psych: AO x 3
Data Reviewed
-
Date of Service: January 11, 2025
Medical Decision Making: Reviewed Test Results
EKG: Tracing Personally Visualized and interpreted
Labs: Labs Reviewed by me
[2025-01-11] MEDS: TIMOPTIC 0.5% OPHTHALMIC SOLUTION 1 DROP RIGHT EYE (08:46)
[2025-01-11] MEDS: LOW STRENGTH ASPIRIN 81 MG PO (08:46)
[2025-01-11] MEDS: TOPROL XL 50 MG PO (08:46)
[2025-01-11 08:47] VITALS: BP 128/68
[2025-01-11] MEDS: COZAAR 50 MG PO (08:48)
[2025-01-11] MEDS: EFFIENT 10 MG PO (09:23)
--- NOTE | 2025-01-11 09:45 | W.DCSUMMARY ---
Discharge Summary
Discharge Data
Date of Admission: 01/08/25
Date of Discharge: 01/11/25
Total time spent discharging patient (in min): 40
-
Pending Results: No
Hospital Course
Mr. Lr is a 69-year-old male with a medical history of hypertension and right eye glaucoma who presented with chest discomfort which awoke him from sleep. In the ED he was found to have rising troponins. EKG showed nonspecific ST and T wave
abnormalities. He has a strong family history of CAD. He was started on anticoagulation with IV heparin and admitted for further evaluation and management.
He was brought for coronary angiography and ultimately underwent PCI with HOPE to LCx, OM2, and LAD, complicated by small jailed diagonal branch being managed medically. He had some residual postprocedural chest pain relieved by nitroglycerin drip
which has since resolved. Echocardiogram showed normal LVEF and normal valvular function. He has been started on dual antiplatelet therapy with aspirin and prasugrel which he will continue for at least 1 year. He will also be continued on high
intensity statin therapy indefinitely. He has been started on beta-blockade with metoprolol succinate at 50 mg daily. His home amlodipine has been discontinued but he will be continued on his home losartan 50 mg daily for blood pressure control.
He will be given a prescription for sublingual nitro to be taken as needed for chest pain, which if needed he should also seek immediate medical attention. He has recovered well and is medically stable for discharge to home. He will need
outpatient cardiology follow-up and cardiac rehab.
General: No Apparent Distress, Comfortable and Conversant
HEENT: NormoCephalic, Moist mucous membranes, Atraumatic
Respiratory: Clear and Non Labored Respirations
Cardiac: S1/S2 and Regular Rhythm; No Rub or Gallop
GI: Soft, Non Tender, Non Distended and Normal Bowel Sounds
Musculoskeletal: No Edema, no deformity
Skin: Warm and dry, right radial vascular access site with dressing clean dry intact
: NO Santos
Neuro: Awake, Alert, Nonfocal/grossly intact
Psych: Calm and Intact Judgment/Insight
Discharge Plan
-
Patient Disposition: Home (Routine Discharge)
Discharge Diagnosis/Procedures: NSTEMI, s/p angioplasty and stent x1 to Left Anterior Descending, x1 to OM2, and x1 to Left Circumflex arteries
Diet: Low Cholesterol
Activity: As tolerated
Other Services: Cardiac Rehab
Activity Restrictions/Additional Instructions:
Mr. Lr is a 69-year-old male with a medical history of hypertension and right eye glaucoma who presented with chest discomfort which awoke him from sleep. In the ED he was found to have rising troponins. EKG showed nonspecific ST and T wave
abnormalities. He has a strong family history of CAD. He was started on anticoagulation with IV heparin and admitted for further evaluation and management.
He was brought for coronary angiography and ultimately underwent PCI with HOPE to LCx, OM2, and LAD, complicated by small jailed diagonal branch being managed medically. He had some residual postprocedural chest pain relieved by nitroglycerin drip
which has since resolved. Echocardiogram showed normal LVEF and normal valvular function. He has been started on dual antiplatelet therapy with aspirin and prasugrel which he will continue for at least 1 year. He will also be continued on high
intensity statin therapy indefinitely. He has been started on beta-blockade with metoprolol succinate at 50 mg daily. His home amlodipine has been discontinued but he will be continued on his home losartan 50 mg daily for blood pressure control.
He will be given a prescription for sublingual nitro to be taken as needed for chest pain, which if needed he should also seek immediate medical attention. He has recovered well and is medically stable for discharge to home. He will need
outpatient cardiology follow-up and cardiac rehab.
Stand Alone Forms: DC Instructions- Cath/EP Lab
Referrals:
[facility] [Outside]
Referral Note: Cardiac Rehab Orientation appointment is on , 02/01/2025@ 1:00pm.
The Cardiac Rehab gym is located on the first floor of the [facility].
Odette Fabian NP [Specified Professional Personl, Cardiology] - 01/30/25 9:40 am
Camilo Espinoza MD [Family Provider, Family Practice]
Prescriptions:
New
atorvastatin 40 mg Tablet
40 mg PO QPM 90 Days Qty: 90 0RF
aspirin 81 mg Tablet,Chewable
81 mg PO DAILY 90 Days Qty: 90 0RF
prasugrel HCl 10 mg Tablet
10 mg PO DAILY 90 Days Qty: 90 0RF
nitroglycerin 0.4 mg Tablet, Sublingual
0.4 mg sublingual [id number] PRN (Reason: chest pain) Qty: 20 0RF
metoprolol succinate 25 mg Tablet Extended Release 24 Hr
50 mg PO DAILY 90 Days Qty: 180 0RF
Continued
losartan 50 mg Tablet
50 mg PO DAILY
latanoprost 0.005 % Drops
1 drp RIGHT EYE HS
dextroamphetamine-amphetamine [Adderall] 10 mg Tablet
10 mg PO DAILY
acetaminophen [Tylenol] 325 mg Tablet
325 mg PO DAILYPRN PRN (Reason: mild pain)
timolol maleate 0.5 % Gel Forming Solution
1 drp RIGHT EYE DAILY
Discontinued
amlodipine [Norvasc] 10 mg Tablet
10 mg PO DAILY
Discharge Orders:
Discharge Patient (As Directed); Ordered 01/11/25
Ordered By: Eric Feldman
Care Plan Goals
Care Plan Goals:
Problem: Readiness for enhanced knowledge related to diagnosis and treatment plan
Goal: Understand your diagnosis and treatment plan needs, including medications if applicable.
Instructions: Know your diagnosis, underlying causes and treatment plan options, including medications if applicable. Consult with your health care team to learn about your diagnosis and treatment plan, including medications if applicable.
Discharge Date and Time
Print Language: WELSH
--- NOTE | 2025-01-11 09:59 | CM ---
Reviewed chart. Met with Mr. Lr to review discharge plans. He states he feels well and maybe able to go home soon. Prior to admission he resides with his spouse in a two story home without any steps to enter. He has a full flight of steps to
get to bedroom/full bathroom. He has a powder room on the first floor. Prior to admission he was independent with ambulation and adls. He does not have any DME in the home. He has a prescription plan with Kari marie and uses [facility]. Medical
work-up in progress. The discharge plan is to return home with his spouse when medically stable.
--- NOTE | 2025-01-11 10:38 | PTCARENOTE ---
IV and tele removed. Discharge instructions reviewed w/ pt and verbalizes understanding. Belongings collected and sent home w/ pt. Escorted via WC and staff assist to home w/ spouse.
[2025-01-12 18:02] LABS: Lipoprotein a (Lp a) 15 mg/dL (<=29)
== END 2025-01-11 10:39 | disposition home or self-care (01) | DRG 322 ==
LOC: IVU 20:33
PROVIDERS: Emergency Medicine; Nurse Practitioner; Physician Assistant Medical; Student in an Organized Health Care Education/Training Program; ADMITTING PHYSICIAN Hospitalist; ATTENDING PHYSICIAN Internal Medicine; EMERGENCY PHYSICIAN Student in an Organized Health Care Education/Training Program; FAMILY PHYSICIAN Family Medicine; OTHER PHYSICIAN Internal Medicine
PROC: B241ZZ3 Ultrasonography of Multiple Coronary Arteries, Intravascular (ICD-10-PCS; 2025-01-09)
PROC: 027236Z Dilation of Coronary Artery, Three Arteries with Three Drug-eluting Intraluminal Devices, Percutaneous Approach (ICD-10-PCS; 2025-01-09)
PROC: B2111ZZ Fluoroscopy of Multiple Coronary Arteries using Low Osmolar Contrast (ICD-10-PCS; 2025-01-09)
PROC: 4A023N7 Measurement of Cardiac Sampling and Pressure, Left Heart, Percutaneous Approach (ICD-10-PCS; 2025-01-09)
DX: I21.4 Non-ST elevation (NSTEMI) myocardial infarction (principal); I11.9 Hypertensive heart disease without heart failure; I25.10 Atherosclerotic heart disease of native coronary artery without angina pectoris; H40.9 Unspecified glaucoma; F90.9 Attention-deficit hyperactivity disorder, unspecified type; Z82.41 Family history of sudden cardiac death; Z82.49 Family history of ischemic heart disease and other diseases of the circulatory system
CPT/HCPCS: 71046; 80048; 80053; 80061; 83036; 83695; 83735; 84484; 85025; 85027; 85347; 85379; 85730; 92978; 92979; 93005; 93306; 96374; 96376; 99152; 99153; 99291; C1725; C1753; C1874; C1894; C9600; C9601

== ENCOUNTER 2025-02-27 16:17 | Outpatient (RCR) | payer MEDICARE, SELFPAY | END 2025-02-27 23:59 | disposition home or self-care (01) | LOC: CRHB 16:17 | PROVIDERS: ATTENDING PHYSICIAN Internal Medicine | DX: I25.10 Atherosclerotic heart disease of native coronary artery without angina pectoris (principal); I25.2 Old myocardial infarction; Z95.5 Presence of coronary angioplasty implant and graft | CPT/HCPCS: G0422; G0423 ==

== ENCOUNTER → 2025-07-09 12:40 | Outpatient (REF) | payer MEDICARE, OTHER, SELFPAY | LOC: RCS 12:40 | PROVIDERS: ATTENDING PHYSICIAN Nurse Practitioner; FAMILY PHYSICIAN Family Medicine | DX: I25.10 Atherosclerotic heart disease of native coronary artery without angina pectoris (principal); I10 Essential (primary) hypertension; E78.00 Pure hypercholesterolemia, unspecified | CPT/HCPCS: 93306 ==